=== PATIENT | female | born 1970 | race Caucasian/White ===

== ENCOUNTER 2020-07-08 21:56 | Day surgery (SDCO) | payer OTHER ==
[~2020-07-08] VITALS: Ht 170.2 cm; Wt 129.8 kg
[~2020-07-08 21:56] MED LIST: AZITHROMYCIN250 MG PO; CYMBALTA 30MG C30 MG PO; DICYCLOMINE HCL20 MG PO; FUROSEMIDE 40 MG TAB PO; GLUCOTROL5 MG PO; HCTZ25 MG PO; HYDROCODON-ACE1 EAC4 PO; LASIX20 MG PO; MEDROL 4MG DOSEP4 MG PO; METFORMIN HCL500 MG PO; NEURONTIN300 MG PO; ONDANSETRON ODT4 MG SL; PEPCID AC20 MG PO; PREDNISONE 20MG20 MG PO; PRINIVIL20 MG PO; PROTONIX40 MG PO; ROBAXIN750 MG PO; SINGULAIR10 MG PO; ZOCOR5 MG PO
[2020-07-08 23:41] LABS: BILIRUBIN NEGATIVE (NEGATIVE); BLOOD 2+ Ery/uL (NEGATIVE); CLARITY CLEAR (CLEAR); COLOR YELLOW (YELLOW); GLUCOSE (U) 3+ mg/dL (NORMAL); LEUKOCYTES NEGATIVE Leu/uL (NEGATIVE); NITRITE NEGATIVE (NEGATIVE); PROTEIN NEGATIVE (NEGATIVE); SPECIFIC GRAVITY 1.015 (1.001-1.030); UROBILINOGEN 0.2 mg/dL (0.2-1.0)
[2020-07-09 00:02] LABS: BACTERIA 1+
[2020-07-09 00:18] LABS: BASOPHIL 0.8 % (0-2); HCT 43.5 % (37.0-47.0); HGB 14.5 g/dl (12.5-16.0); LYMPHOCYTE 33.6 % (15-48); MCH 28.6 pg (25.0-31.0); MCHC 33.3 g/dL (32.0-36.0); MCV 85.8 fL (78.0-100.0); MONOCYTE 5.3 % (0-12); MPV 8.9 fL (6.0-9.5); NEUTROPHIL 57.9 % (41-80); NRBC 0; PLT 470 K/uL (150-400); RBC 5.07 M/uL (4.20-5.40); RDW 14.6 % (11.5-14.0); WBC 14.6 K/uL (4.0-10.5)
[2020-07-09 00:35] LABS: ALBUMIN 3.2 g/dL (3.4-5.0); BILIRUBIN - TOTAL 0.1 mg/dL (0.2-1.0); BUN/CREAT RATIO (CALC) 20.2 RATIO; CREATININE 0.99 mg/dL (0.51-0.95); GLOBULIN (CALCULATION) 4.4 g/dL; POTASSIUM 3.8 mmol/L (3.5-5.1); TOTAL PROTEIN 7.6 g/dL (6.4-8.2)
[2020-07-09] MEDS ORDERED: PROTONIX 40MG T40 MG PO (04:07)
[2020-07-09] MEDS ORDERED: SINGULAIR10 MG PO (04:07)
[2020-07-09] MEDS ORDERED: PRINIVIL20 MG PO (04:07)
[2020-07-09] MEDS ORDERED: ZOCOR5 MG PO (04:08)
[2020-07-09] MEDS ORDERED: CYMBALTA 30MG C30 MG PO (04:08)
[2020-07-09] MEDS ORDERED: GABAPENTIN300 MG PO (04:09)
[2020-07-09] MEDS ORDERED: GABAPENTIN600 MG PO (04:10)
[2020-07-09] MEDS ORDERED: GLUCOTROL5 MG PO (04:11)
[2020-07-09] MEDS ORDERED: HCTZ25 MG PO (04:12)
[2020-07-09 11:01] LABS: POTASSIUM 3.6 mmol/L (3.5-5.1)
[2020-07-10] MEDS ORDERED: ZOFRAN4 M1 PO (09:53)
[2020-07-10] MEDS ORDERED: PERCOCET 5-3251 EACH PO (09:53)
== END 2020-07-10 14:45 | disposition home or self-care (01) ==
LOC: FER 21:56 → FMS 07-09 02:52
PROVIDERS: Nurse Practitioner; Student in an Organized Health Care Education/Training Program; ADMIT Allergy & Immunology Allergy
DX: E11.43 Type 2 diabetes mellitus with diabetic autonomic (poly)neuropathy (principal); K31.84 Gastroparesis; D72.829 Elevated white blood cell count, unspecified; R10.9 Unspecified abdominal pain; K21.9 Gastro-esophageal reflux disease without esophagitis; N83.202 Unspecified ovarian cyst, left side; J45.909 Unspecified asthma, uncomplicated; E11.40 Type 2 diabetes mellitus with diabetic neuropathy, unspecified; E03.9 Hypothyroidism, unspecified; I10 Essential (primary) hypertension; F60.3 Borderline personality disorder; F12.10 Cannabis abuse, uncomplicated; F43.10 Post-traumatic stress disorder, unspecified; Z90.49 Acquired absence of other specified parts of digestive tract; Z87.891 Personal history of nicotine dependence; Z82.49 Family history of ischemic heart disease and other diseases of the circulatory system; Z88.5 Allergy status to narcotic agent; Z20.822 Contact with and (suspected) exposure to COVID-19; R11.2 Nausea with vomiting, unspecified
CPT/HCPCS: 36415; 80048; 80053; 81001; 84484; 85025; 87076; 87088; 87186; 93005; G0378; J1170; J1650; J1885; J2270; J2405; J3010; J7030; U0002

== ENCOUNTER 2020-08-14 21:07 | Emergency (ER) | payer OTHER ==
[~2020-08-14 21:07] MED LIST changes: +GABAPENTIN300 MG PO; +GABAPENTIN600 MG PO; +PERCOCET 5-3251 EACH PO; +PROTONIX 40MG T40 MG PO; +ZOFRAN4 M1 PO
[2020-08-14] MEDS ORDERED: NORCO 5-325 TA1 EACH PO (23:59)
[2020-08-14] MEDS ORDERED: IBUPROFEN800 MG PO (23:59)
== END 2020-08-15 00:15 | disposition home or self-care (01) ==
LOC: FER 21:07
DX: S70.11XA Contusion of right thigh, initial encounter (principal); I10 Essential (primary) hypertension; E11.9 Type 2 diabetes mellitus without complications; J45.909 Unspecified asthma, uncomplicated; Z88.5 Allergy status to narcotic agent; W20.8XXA Other cause of strike by thrown, projected or falling object, initial encounter; Y92.009 Unspecified place in unspecified non-institutional (private) residence as the place of occurrence of the external cause
CPT/HCPCS: 73552; J1170; J1885

== ENCOUNTER 2020-08-17 20:05 | Emergency (ER) | payer OTHER ==
[~2020-08-17 20:05] MED LIST changes: +IBUPROFEN800 MG PO; +NORCO 5-325 TA1 EACH PO
[2020-08-17] MEDS ORDERED: PEPCID AC20 MG PO (20:52)
[2020-08-17] MEDS ORDERED: BENADRYL25 MG PO (20:52)
== END 2020-08-17 21:15 | disposition home or self-care (01) ==
LOC: FER 20:05
DX: T63.441A Toxic effect of venom of bees, accidental (unintentional), initial encounter (principal); E11.9 Type 2 diabetes mellitus without complications; I10 Essential (primary) hypertension; E78.5 Hyperlipidemia, unspecified; E03.9 Hypothyroidism, unspecified; F17.200 Nicotine dependence, unspecified, uncomplicated; Z88.5 Allergy status to narcotic agent; Z91.030 Bee allergy status; Z79.899 Other long term (current) drug therapy; Z79.84 Long term (current) use of oral hypoglycemic drugs
CPT/HCPCS: J1200; J7512

== ENCOUNTER 2020-09-10 16:51 | Emergency (ER) | payer OTHER ==
[~2020-09-10 16:51] MED LIST changes: +BENADRYL25 MG PO
[2020-09-10 21:30] LABS: BASOPHIL 0.7 % (0-2); EOSINOPHIL 1.4 % (0-5); HCT 46.4 % (37.0-47.0); HGB 15.1 g/dl (12.5-16.0); LYMPHOCYTE 32.9 % (15-48); MCH 27.8 pg (25.0-31.0); MCHC 32.5 g/dL (32.0-36.0); MCV 85.3 fL (78.0-100.0); MONOCYTE 5.9 % (0-12); MPV 8.8 fL (6.0-9.5); NEUTROPHIL 58.7 % (41-80); NRBC 0; PLT 402 K/uL (150-400); RBC 5.44 M/uL (4.20-5.40); RDW 14.2 % (11.5-14.0); WBC 12.9 K/uL (4.0-10.5)
[2020-09-10 21:35] LABS: BILIRUBIN NEGATIVE (NEGATIVE); BLOOD NEGATIVE Ery/uL (NEGATIVE); CLARITY CLEAR (CLEAR); COLOR YELLOW (YELLOW); GLUCOSE (U) 3+ mg/dL (NORMAL); LEUKOCYTES 1+ Leu/uL (NEGATIVE); NITRITE NEGATIVE (NEGATIVE); PROTEIN NEGATIVE (NEGATIVE)
[2020-09-10 21:39] LABS: AMPHETAMINES NEGATIVE (NEGATIVE); BARBITURATES NEGATIVE (NEGATIVE); ECSTASY (MDMA) NEGATIVE (NEGATIVE); MARIJUANA (THC) POSITIVE (NEGATIVE); METHADONE NEGATIVE (NEGATIVE); OPIATES NEGATIVE (NEGATIVE); OXYCODONE NEGATIVE (NEGATIVE)
[2020-09-10 21:41] LABS: BACTERIA TRACE
[2020-09-10 21:41] LABS: ALBUMIN 3.8 g/dL (3.4-5.0); BILIRUBIN - TOTAL 0.3 mg/dL (0.2-1.0); BUN/CREAT RATIO (CALC) 14.9 RATIO; CREATININE 0.94 mg/dL (0.51-0.95); GLOBULIN (CALCULATION) 3.9 g/dL; POTASSIUM 3.3 mmol/L (3.5-5.1); TOTAL PROTEIN 7.7 g/dL (6.4-8.2)
== END 2020-09-11 00:17 | disposition home or self-care (01) ==
LOC: FER 16:51
PROVIDERS: Nurse Practitioner Family
DX: R07.89 Other chest pain (principal); R06.02 Shortness of breath; E11.9 Type 2 diabetes mellitus without complications; I10 Essential (primary) hypertension; I51.9 Heart disease, unspecified; Z88.5 Allergy status to narcotic agent
CPT/HCPCS: 36415; 71045; 80053; 80305; 81001; 84484; 85025; 87076; 87088; 87186; J1885; J2405; J7030

== ENCOUNTER 2020-11-08 16:37 | Emergency (ER) | payer OTHER ==
[2020-11-08 17:54] LABS: BASOPHIL 0.4 % (0-2); EOSINOPHIL 1.1 % (0-5); HCT 48.4 % (37.0-47.0); LYMPHOCYTE 39.1 % (15-48); MCH 27.3 pg (25.0-31.0); MCHC 33.1 g/dL (32.0-36.0); MCV 82.6 fL (78.0-100.0); MONOCYTE 10.4 % (0-12); MPV 8.8 fL (6.0-9.5); NEUTROPHIL 48.7 % (41-80); NRBC 0; PLT 343 K/uL (150-400); RBC 5.86 M/uL (4.20-5.40); RDW 14.4 % (11.5-14.0); WBC 7.4 K/uL (4.0-10.5)
[2020-11-08 18:14] LABS: BUN/CREAT RATIO (CALC) 12.4 RATIO; CREATININE 1.05 mg/dL (0.51-0.95); POTASSIUM 3.7 mmol/L (3.5-5.1)
== END 2020-11-08 20:20 | disposition home or self-care (01) ==
LOC: FER 16:37
PROVIDERS: Nurse Practitioner Family
DX: U07.1 COVID-19 (principal); I10 Essential (primary) hypertension; E11.40 Type 2 diabetes mellitus with diabetic neuropathy, unspecified; J45.909 Unspecified asthma, uncomplicated; Z23 Encounter for immunization; Z88.5 Allergy status to narcotic agent
CPT/HCPCS: 36415; 71045; 80048; 85025; J1885; J7030; M0245; Q0245

== ENCOUNTER 2020-12-17 14:58 | Emergency (ER) | payer OTHER ==
[2020-12-17] MEDS ORDERED: ONDANSETRON ODT4 MG PO (17:17)
[2020-12-17] MEDS ORDERED: MEDROL 4MG DOSEP4 MG PO (17:17)
[2020-12-17] MEDS ORDERED: ZYRTEC10 M3 PO (17:19)
== END 2020-12-17 17:30 | disposition home or self-care (01) ==
LOC: FER 14:58
DX: T63.441A Toxic effect of venom of bees, accidental (unintentional), initial encounter (principal); F17.210 Nicotine dependence, cigarettes, uncomplicated
CPT/HCPCS: 93005; J1200; J2405; J2930; J7030

== ENCOUNTER 2021-02-25 10:14 | Day surgery (SDCO) | payer OTHER ==
[~2021-02-25] VITALS: Ht 170.2 cm; Wt 123.0 kg
[~2021-02-25 10:14] MED LIST changes: +ONDANSETRON ODT4 MG PO; +ZYRTEC10 M3 PO
[2021-02-25 11:18] LABS: BASOPHIL 0.5 % (0-2); EOSINOPHIL 0.8 % (0-5); HGB 13.6 g/dl (12.5-16.0); LYMPHOCYTE 17.9 % (15-48); MCH 27.3 pg (25.0-31.0); MCHC 32.4 g/dL (32.0-36.0); MCV 84.3 fL (78.0-100.0); MONOCYTE 5.6 % (0-12); MPV 8.9 fL (6.0-9.5); NEUTROPHIL 73.3 % (41-80); NRBC 0; PLT 405 K/uL (150-400); RBC 4.98 M/uL (4.20-5.40); WBC 16.2 K/uL (4.0-10.5)
[2021-02-25 11:20] LABS: INFLUENZA A NAA NEGATIVE (NEGATIVE)
[2021-02-25 11:22] LABS: ALBUMIN 3.3 g/dL (3.4-5.0); BILIRUBIN - TOTAL 0.2 mg/dL (0.2-1.0); BUN/CREAT RATIO (CALC) 18.6 RATIO; CREATININE 0.86 mg/dL (0.51-0.95); GLOBULIN (CALCULATION) 3.3 g/dL; TOTAL PROTEIN 6.6 g/dL (6.4-8.2)
[2021-02-25 11:24] LABS: CORONAVIRUS 2019 SARS-COV-2 POSITIVE (NEGATIVE)
[2021-02-25] MEDS ORDERED: METFORMIN HCL500 MG PO (15:33)
[2021-02-25 15:48] LABS: LACTIC ACID 1.3 mmol/L (0.4-1.9)
[2021-02-25] MEDS ORDERED: JANUVIA50 M1 PO (15:53)
[2021-02-25 15:59] LABS: BILIRUBIN NEGATIVE (NEGATIVE); BLOOD NEGATIVE Ery/uL (NEGATIVE); CLARITY CLEAR (CLEAR); COLOR YELLOW (YELLOW); GLUCOSE (U) NORMAL (NORMAL); LEUKOCYTES NEGATIVE Leu/uL (NEGATIVE); NITRITE NEGATIVE (NEGATIVE); PROTEIN NEGATIVE (NEGATIVE); SPECIFIC GRAVITY 1.015 (1.001-1.030); UROBILINOGEN 0.2 mg/dL (0.2-1.0)
[2021-02-25] MEDS ORDERED: GABAPENTIN800 MG PO (16:04)
[2021-02-25] MEDS ORDERED: PRISTIQ ER100 MG PO (16:05)
[2021-02-25] MEDS ORDERED: GLUCOTROL10 MG PO (16:07)
[2021-02-25] MEDS ORDERED: AMITRIPTYLINE 225 MG PO (16:07)
[2021-02-25] MEDS ORDERED: LASIX40 MG PO (16:09)
[2021-02-25] MEDS ORDERED: REGLAN10 MG PO (16:10)
[2021-02-25] MEDS ORDERED: TRULICITY1.5 MG/0.5 IJ (16:11)
[2021-02-25] MEDS ORDERED: LEVOTHYROXINE75 MC2 PO (16:12)
[2021-02-26 07:26] LABS: BASOPHIL 0.2 % (0-2); EOSINOPHIL 0.1 % (0-5); HCT 41.5 % (37.0-47.0); HGB 13.5 g/dl (12.5-16.0); LYMPHOCYTE 16.2 % (15-48); MCH 27.1 pg (25.0-31.0); MCHC 32.5 g/dL (32.0-36.0); MCV 83.3 fL (78.0-100.0); MONOCYTE 5.4 % (0-12); MPV 9.4 fL (6.0-9.5); NEUTROPHIL 77.3 % (41-80); NRBC 0; PLT 443 K/uL (150-400); RBC 4.98 M/uL (4.20-5.40); RDW 14.6 % (11.5-14.0); WBC 19.5 K/uL (4.0-10.5)
[2021-02-26 08:26] LABS: BUN/CREAT RATIO (CALC) 21.5 RATIO; CREATININE 0.79 mg/dL (0.51-0.95)
[2021-02-26] MEDS ORDERED: MEDROL 4MG DOSEP4 MG PO (11:54)
[2021-02-26] MEDS ORDERED: ROBITUSSIN W/COD5 ML PO ×2 (11:54→16:40)
== END 2021-02-26 15:54 | disposition home or self-care (01) ==
LOC: FER 10:14 → FMS 12:58 → FER 15:31 → FMS 02-26 15:54
PROVIDERS: Emergency Medicine; ADMIT Internal Medicine
DX: U07.1 COVID-19 (principal); J45.909 Unspecified asthma, uncomplicated; E11.43 Type 2 diabetes mellitus with diabetic autonomic (poly)neuropathy; K31.84 Gastroparesis; R79.89 Other specified abnormal findings of blood chemistry; I10 Essential (primary) hypertension; E78.5 Hyperlipidemia, unspecified; E03.9 Hypothyroidism, unspecified; D72.828 Other elevated white blood cell count; F32.A Depression, unspecified; F43.10 Post-traumatic stress disorder, unspecified; Z87.891 Personal history of nicotine dependence; Z90.49 Acquired absence of other specified parts of digestive tract; Z88.5 Allergy status to narcotic agent; Z79.84 Long term (current) use of oral hypoglycemic drugs; Z79.899 Other long term (current) drug therapy; Z98.1 Arthrodesis status; Z82.49 Family history of ischemic heart disease and other diseases of the circulatory system
CPT/HCPCS: 36415; 71045; 71275; 80048; 80053; 81003; 82728; 82962; 83036; 83605; 83880; 84484; 85025; 85379; 87040; 93005; 93971; 94640; 94664; G0378; J1650; J1940; J2930; J7512; U0002

== ENCOUNTER 2021-04-25 17:31 | Emergency (ER) | payer OTHER ==
[~2021-04-25 17:31] MED LIST changes: +AMITRIPTYLINE 225 MG PO; +GABAPENTIN800 MG PO; +GLUCOTROL10 MG PO; +JANUVIA50 M1 PO; +LASIX40 MG PO; +LEVOTHYROXINE75 MC2 PO; +PRISTIQ ER100 MG PO; +REGLAN10 MG PO; +ROBITUSSIN W/COD5 ML PO; +TRULICITY1.5 MG/0.5 IJ
[2021-04-25 18:27] LABS: BASOPHIL 0.3 % (0-2); EOSINOPHIL 0.5 % (0-5); HCT 50.2 % (37.0-47.0); HGB 16.1 g/dl (12.5-16.0); LYMPHOCYTE 7.9 % (15-48); MCH 27.1 pg (25.0-31.0); MCHC 32.1 g/dL (32.0-36.0); MCV 84.4 fL (78.0-100.0); MONOCYTE 7.4 % (0-12); MPV 8.6 fL (6.0-9.5); NEUTROPHIL 83.4 % (41-80); NRBC 0; PLT 544 K/uL (150-400); RBC 5.95 M/uL (4.20-5.40); RDW 16.5 % (11.5-14.0); WBC 18.3 K/uL (4.0-10.5)
[2021-04-25 18:38] LABS: ALBUMIN 3.8 g/dL (3.4-5.0); BILIRUBIN - TOTAL 0.4 mg/dL (0.2-1.0); BUN/CREAT RATIO (CALC) 19.5 RATIO; CREATININE 1.13 mg/dL (0.51-0.95); GLOBULIN (CALCULATION) 3.8 g/dL; POTASSIUM 3.7 mmol/L (3.5-5.1); TOTAL PROTEIN 7.6 g/dL (6.4-8.2)
[2021-04-25 19:02] LABS: BILIRUBIN 2+ mg/dL (NEGATIVE); BLOOD NEGATIVE Ery/uL (NEGATIVE); COLOR YELLOW (YELLOW); GLUCOSE (U) NORMAL (NORMAL); LEUKOCYTES NEGATIVE Leu/uL (NEGATIVE); NITRITE NEGATIVE (NEGATIVE); PROTEIN 1+ mg/dL (NEGATIVE); SPECIFIC GRAVITY >=1.030 (1.001-1.030); UROBILINOGEN 0.2 mg/dL (0.2-1.0)
[2021-04-25 19:04] LABS: CORONAVIRUS 2019 SARS-COV-2 NEGATIVE (NEGATIVE); INFLUENZA A NAA NEGATIVE (NEGATIVE)
[2021-04-25 19:05] LABS: CLARITY HAZY (CLEAR)
[2021-04-25 19:23] LABS: BACTERIA 1+
[2021-04-25 19:25] LABS: TRANSITIONAL EPITHELIAL CELLS RARE; URINARY RBC RARE
[2021-04-25 19:27] LABS: RENAL EPITHELIAL CELLS RARE
[2021-04-25 20:16] LABS: LACTIC ACID 0.9 mmol/L (0.4-1.9)
[2021-04-25] MEDS ORDERED: ONDANSETRON HCL4 MG PO (20:38)
== END 2021-04-25 21:42 | disposition home or self-care (01) ==
LOC: FER 17:31
PROVIDERS: Nurse Practitioner Family
DX: K52.9 Noninfective gastroenteritis and colitis, unspecified (principal); F17.210 Nicotine dependence, cigarettes, uncomplicated; E11.9 Type 2 diabetes mellitus without complications; I10 Essential (primary) hypertension; Z20.822 Contact with and (suspected) exposure to COVID-19
CPT/HCPCS: 36415; 80053; 81001; 83605; 85025; 87088; J2405; J7030; Q9967; U0002

== ENCOUNTER 2021-05-26 19:09 | Day surgery (SDCO) | payer OTHER ==
[~2021-05-26] VITALS: Ht 170.2 cm; Wt 121.3 kg
[~2021-05-26 19:09] MED LIST changes: +ONDANSETRON HCL4 MG PO
[2021-05-26 20:06] LABS: BASOPHIL 0.7 % (0-2); EOSINOPHIL 1.9 % (0-5); HCT 48.6 % (37.0-47.0); HGB 15.8 g/dl (12.5-16.0); LYMPHOCYTE 31.8 % (15-48); MCH 27.1 pg (25.0-31.0); MCHC 32.5 g/dL (32.0-36.0); MCV 83.4 fL (78.0-100.0); MONOCYTE 7.1 % (0-12); MPV 8.6 fL (6.0-9.5); NEUTROPHIL 58.2 % (41-80); NRBC 0; PLT 462 K/uL (150-400); RBC 5.83 M/uL (4.20-5.40); RDW 15.4 % (11.5-14.0); WBC 14.6 K/uL (4.0-10.5)
[2021-05-26 20:33] LABS: LACTIC ACID 3.1 mmol/L (0.4-1.9)
[2021-05-26 20:35] LABS: ALBUMIN 3.5 g/dL (3.4-5.0); BILIRUBIN - TOTAL 0.2 mg/dL (0.2-1.0); BUN/CREAT RATIO (CALC) 11.1 RATIO; CREATININE 0.99 mg/dL (0.51-0.95); POTASSIUM 3.4 mmol/L (3.5-5.1); TOTAL PROTEIN 7.5 g/dL (6.4-8.2)
[2021-05-26 20:41] LABS: CORONAVIRUS 2019 SARS-COV-2 NEGATIVE (NEGATIVE); INFLUENZA A NAA NEGATIVE (NEGATIVE)
[2021-05-26 20:53] LABS: BILIRUBIN 1+ mg/dL (NEGATIVE); BLOOD TRACE-INTACT Ery/uL (NEGATIVE); CLARITY CLEAR (CLEAR); COLOR YELLOW (YELLOW); GLUCOSE (U) NORMAL (NORMAL); LEUKOCYTES NEGATIVE Leu/uL (NEGATIVE); NITRITE NEGATIVE (NEGATIVE); PROTEIN 1+ mg/dL (NEGATIVE); pH 6.5 (5.0-9.0)
[2021-05-26 20:59] LABS: AMORPHOUS URATES CRYSTALS MODERATE; BACTERIA 2+
[2021-05-26] MEDS ORDERED: NOVOLOG VI100 UNIT/1 SC (23:00)
[2021-05-27 05:35] LABS: BASOPHIL 0.2 % (0-2); EOSINOPHIL 0 % (0-5); HCT 43.1 % (37.0-47.0); LYMPHOCYTE 7.8 % (15-48); MCH 27.2 pg (25.0-31.0); MCHC 32.5 g/dL (32.0-36.0); MCV 83.9 fL (78.0-100.0); MONOCYTE 1.4 % (0-12); MPV 8.8 fL (6.0-9.5); NRBC 0; PLT 371 K/uL (150-400); RBC 5.14 M/uL (4.20-5.40); RDW 15.2 % (11.5-14.0); WBC 10.5 K/uL (4.0-10.5)
[2021-05-27 05:40] LABS: NEUTROPHIL 90.2 % (41-80)
[2021-05-27 05:58] LABS: BUN/CREAT RATIO (CALC) 16.7 RATIO; CREATININE 0.84 mg/dL (0.51-0.95); POTASSIUM 4.5 mmol/L (3.5-5.1)
[2021-05-28 05:43] LABS: BASOPHIL 0.3 % (0-2); EOSINOPHIL 0.5 % (0-5); HCT 41.6 % (37.0-47.0); HGB 13.4 g/dl (12.5-16.0); LYMPHOCYTE 26.2 % (15-48); MCH 27.1 pg (25.0-31.0); MCHC 32.2 g/dL (32.0-36.0); MCV 84.2 fL (78.0-100.0); MONOCYTE 5.6 % (0-12); MPV 8.9 fL (6.0-9.5); NEUTROPHIL 66.9 % (41-80); NRBC 0; PLT 360 K/uL (150-400); RBC 4.94 M/uL (4.20-5.40); RDW 15.4 % (11.5-14.0); WBC 13.3 K/uL (4.0-10.5)
[2021-05-28 06:01] LABS: CREATININE 0.9 mg/dL (0.51-0.95); MAGNESIUM 1.9 mg/dL (1.8-2.4)
[2021-05-28] MEDS ORDERED: FENOFIBRATE145 MG PO (06:39)
[2021-05-28] MEDS ORDERED: MOBIC7.5 MG PO (06:40)
[2021-05-28] MEDS ORDERED: PRISTIQ ER100 MG PO (06:41)
[2021-05-28] MEDS ORDERED: LAMICTAL100 MG PO (06:42)
[2021-05-28] MEDS ORDERED: HCTZ25 MG PO (06:44)
[2021-05-28] MEDS ORDERED: ATARAX25 MG PO (06:45)
[2021-05-28] MEDS ORDERED: CRESTOR10 M1 PO (06:46)
[2021-05-28] MEDS ORDERED: CARAFATE1 GM PO (06:47)
[2021-05-28] MEDS ORDERED: PREDNISONE 20MG20 MG PO (10:27)
[2021-05-28] MEDS ORDERED: HYDROCODONE-CH473 ML PO (10:27)
[2021-05-28] MEDS ORDERED: AZITHROMYCIN250 MG PO (13:04)
== END 2021-05-28 14:34 | disposition home or self-care (01) ==
LOC: FER 19:09 → FMS 21:14
PROVIDERS: Internal Medicine; Nurse Practitioner; ADMIT Internal Medicine
DX: J44.1 Chronic obstructive pulmonary disease with (acute) exacerbation (principal); J45.909 Unspecified asthma, uncomplicated; I10 Essential (primary) hypertension; E11.43 Type 2 diabetes mellitus with diabetic autonomic (poly)neuropathy; K31.84 Gastroparesis; F17.200 Nicotine dependence, unspecified, uncomplicated; E03.9 Hypothyroidism, unspecified; E87.2 Acidosis; Z90.49 Acquired absence of other specified parts of digestive tract; Z20.822 Contact with and (suspected) exposure to COVID-19
CPT/HCPCS: 36415; 71045; 80048; 80053; 81001; 83605; 83735; 83880; 84145; 84484; 85025; 85379; 87040; 93005; 94640; 94762; G0378; J0456; J0696; J1100; J1650; J1815; J2543; J7030; J7050; J7512; U0002

== ENCOUNTER 2021-06-06 01:41 | Inpatient (IN) | payer OTHER ==
[~2021-06-06] VITALS: Ht 170.2 cm; Wt 128.4 kg
[~2021-06-06 01:41] MED LIST changes: +ATARAX25 MG PO; +CARAFATE1 GM PO; +CRESTOR10 M1 PO; +FENOFIBRATE145 MG PO; +HYDROCODONE-CH473 ML PO; +LAMICTAL100 MG PO; +MOBIC7.5 MG PO; +NOVOLOG VI100 UNIT/1 SC
[2021-06-06 02:46] LABS: INR 0.99 (0.9-1.2); PROTHROMBIN TIME 12.5 SECONDS (11.8-13.4); PTT 35.1 SECONDS (24.4-34.7)
[2021-06-06 02:47] LABS: BASOPHIL 0.6 % (0-2); EOSINOPHIL 0.9 % (0-5); HCT 51.2 % (37.0-47.0); HGB 16.9 g/dl (12.5-16.0); LYMPHOCYTE 23.9 % (15-48); MCH 27.1 pg (25.0-31.0); MCV 82.1 fL (78.0-100.0); MONOCYTE 6.7 % (0-12); MPV 8.9 fL (6.0-9.5); NRBC 0; PLT 542 K/uL (150-400); RBC 6.24 M/uL (4.20-5.40); RDW 15.1 % (11.5-14.0)
[2021-06-06 02:48] LABS: D-DIMER < 0.27 ug/mLFEU (0.00-0.41)
[2021-06-06 02:50] LABS: WBC 23.4 K/uL (4.0-10.5)
[2021-06-06 02:52] LABS: LACTIC ACID 1.3 mmol/L (0.4-1.9)
[2021-06-06 02:53] LABS: ALBUMIN 3.7 g/dL (3.4-5.0); BILIRUBIN - TOTAL 0.4 mg/dL (0.2-1.0); BUN/CREAT RATIO (CALC) 14.6 RATIO; CREATININE 2.26 mg/dL (0.51-0.95); GLOBULIN (CALCULATION) 3.7 g/dL; POTASSIUM 3.9 mmol/L (3.5-5.1); TOTAL PROTEIN 7.4 g/dL (6.4-8.2)
[2021-06-06 03:55] LABS: ACETAMINOPHEN (TYLENOL) < 2.0 ug/mL (10.0-30.0)
[2021-06-06 04:04] LABS: CORONAVIRUS 2019 SARS-COV-2 NEGATIVE (NEGATIVE); INFLUENZA A NAA NEGATIVE (NEGATIVE)
[2021-06-06 05:28] LABS: BILIRUBIN NEGATIVE (NEGATIVE); BLOOD NEGATIVE Ery/uL (NEGATIVE); CLARITY CLEAR (CLEAR); COLOR YELLOW (YELLOW); GLUCOSE (U) NORMAL (NORMAL); LEUKOCYTES NEGATIVE Leu/uL (NEGATIVE); NITRITE NEGATIVE (NEGATIVE); PROTEIN NEGATIVE (NEGATIVE); UROBILINOGEN 0.2 mg/dL (0.2-1.0)
[2021-06-06 05:38] LABS: AMPHETAMINES NEGATIVE (NEGATIVE); BARBITURATES NEGATIVE (NEGATIVE); ECSTASY (MDMA) NEGATIVE (NEGATIVE); MARIJUANA (THC) POSITIVE (NEGATIVE); METHADONE NEGATIVE (NEGATIVE); OPIATES NEGATIVE (NEGATIVE); OXYCODONE NEGATIVE (NEGATIVE)
[2021-06-06 17:16] LABS: BUN/CREAT RATIO (CALC) 19.6 RATIO; CREATININE 1.12 mg/dL (0.51-0.95); POTASSIUM 4.3 mmol/L (3.5-5.1)
[2021-06-07 04:04] LABS: BASOPHIL 0.6 % (0-2); EOSINOPHIL 2.9 % (0-5); HGB 12.8 g/dl (12.5-16.0); LYMPHOCYTE 30.8 % (15-48); MCH 26.6 pg (25.0-31.0); MCHC 31.2 g/dL (32.0-36.0); MCV 85.1 fL (78.0-100.0); MONOCYTE 7.3 % (0-12); MPV 9.2 fL (6.0-9.5); NEUTROPHIL 58.1 % (41-80); NRBC 0; PLT 302 K/uL (150-400); RBC 4.82 M/uL (4.20-5.40); RDW 15.1 % (11.5-14.0); WBC 9.5 K/uL (4.0-10.5)
[2021-06-07 04:27] LABS: BUN/CREAT RATIO (CALC) 17.3 RATIO; C-REACTIVE PROTEIN 2.3 mg/dL (<=0.90); CREATININE 0.98 mg/dL (0.51-0.95); POTASSIUM 4.6 mmol/L (3.5-5.1)
== END 2021-06-07 10:47 | disposition home or self-care (01) | DRG 682 ==
LOC: FER 01:41 → FTCU 05:28
PROVIDERS: Emergency Medicine; Nurse Practitioner Acute Care; ADMIT Internal Medicine
DX: N17.9 Acute kidney failure, unspecified (principal); R65.11 Systemic inflammatory response syndrome (SIRS) of non-infectious origin with acute organ dysfunction; Z68.41 Body mass index [BMI] 40.0-44.9, adult; E11.319 Type 2 diabetes mellitus with unspecified diabetic retinopathy without macular edema; Z20.822 Contact with and (suspected) exposure to COVID-19; I10 Essential (primary) hypertension; J45.909 Unspecified asthma, uncomplicated; R07.89 Other chest pain; E66.9 Obesity, unspecified; F43.10 Post-traumatic stress disorder, unspecified; E11.43 Type 2 diabetes mellitus with diabetic autonomic (poly)neuropathy; K31.84 Gastroparesis; M50.20 Other cervical disc displacement, unspecified cervical region; E03.9 Hypothyroidism, unspecified; E78.5 Hyperlipidemia, unspecified; F41.9 Anxiety disorder, unspecified; F32.A Depression, unspecified; Z86.16 Personal history of COVID-19; Z90.49 Acquired absence of other specified parts of digestive tract; Z98.890 Other specified postprocedural states; Z87.891 Personal history of nicotine dependence
CPT/HCPCS: 36415; 70450; 70551; 71250; 80048; 80053; 80305; 81003; 82962; 83036; 83605; 83880; 84145; 84443; 84484; 85025; 85379; 85610; 85730; 86140; 87040; 93005; 94010; 94640; 97161; 97165; G0480; J1650; J1815; J2543; J7030; J7120; U0002

== ENCOUNTER 2021-10-16 10:18 | Emergency (ER) | payer OTHER ==
[2021-10-16 11:00] LABS: BASOPHIL 0.7 % (0-2); HGB 15.5 g/dl (12.5-16.0); LYMPHOCYTE 19.5 % (15-48); MCH 27.9 pg (25.0-31.0); MCV 84.5 fL (78.0-100.0); MONOCYTE 7.1 % (0-12); NEUTROPHIL 70.3 % (41-80); NRBC 0; PLT 337 K/uL (150-400); RBC 5.56 M/uL (4.20-5.40); RDW 13.8 % (11.5-14.0); WBC 13.6 K/uL (4.0-10.5)
[2021-10-16 11:46] LABS: BUN/CREAT RATIO (CALC) 23.4 RATIO; CREATININE 0.77 mg/dL (0.51-0.95); POTASSIUM 4.1 mmol/L (3.5-5.1)
[2021-10-16] MEDS ORDERED: NORCO 5-325 TA1 EACH PO (19:13)
[2021-10-16] MEDS ORDERED: ATARAX25 MG PO (19:13)
== END 2021-10-16 16:37 | disposition home or self-care (01) ==
LOC: FER 10:18
PROVIDERS: Emergency Medicine
DX: T78.2XXA Anaphylactic shock, unspecified, initial encounter (principal); I10 Essential (primary) hypertension; E11.40 Type 2 diabetes mellitus with diabetic neuropathy, unspecified; J44.9 Chronic obstructive pulmonary disease, unspecified; Z91.030 Bee allergy status; Z79.4 Long term (current) use of insulin; Z79.899 Other long term (current) drug therapy
CPT/HCPCS: 36415; 80048; 85025; 94640; 96372; J0171; J1200; J2060; J2270; J2405; J2930; J7030

== ENCOUNTER 2021-10-18 13:09 | Emergency (ER) | payer OTHER ==
[2021-10-18 15:31] LABS: BASOPHIL 0.4 % (0-2); EOSINOPHIL 0.2 % (0-5); HCT 43.4 % (37.0-47.0); HGB 14.1 g/dl (12.5-16.0); LYMPHOCYTE 11.3 % (15-48); MCH 27.9 pg (25.0-31.0); MCHC 32.5 g/dL (32.0-36.0); MCV 85.8 fL (78.0-100.0); MONOCYTE 4.7 % (0-12); NEUTROPHIL 82.8 % (41-80); NRBC 0; PLT 325 K/uL (150-400); RBC 5.06 M/uL (4.20-5.40); WBC 12.6 K/uL (4.0-10.5)
[2021-10-18 15:58] LABS: ALBUMIN 3.3 g/dL (3.4-5.0); BILIRUBIN - TOTAL 0.3 mg/dL (0.2-1.0); BUN/CREAT RATIO (CALC) 22.1 RATIO; CREATININE 0.77 mg/dL (0.51-0.95); GLOBULIN (CALCULATION) 3.1 g/dL; POTASSIUM 4.2 mmol/L (3.5-5.1); TOTAL PROTEIN 6.4 g/dL (6.4-8.2)
[2021-10-18 16:10] LABS: CORONAVIRUS 2019 SARS-COV-2 NEGATIVE (NEGATIVE); INFLUENZA A NAA NEGATIVE (NEGATIVE)
[2021-10-18 16:19] LABS: INR 0.92 (0.9-1.2); PROTHROMBIN TIME 12.1 SECONDS (11.9-13.9); PTT 28.5 SECONDS (24.9-34.6)
[2021-10-18] MEDS ORDERED: MEDROL 4MG DOSEP4 MG PO (16:58)
== END 2021-10-18 18:14 | disposition home or self-care (01) ==
LOC: FER 13:09
PROVIDERS: Internal Medicine
DX: T78.40XA Allergy, unspecified, initial encounter (principal); G43.909 Migraine, unspecified, not intractable, without status migrainosus; R06.02 Shortness of breath; R06.2 Wheezing; J44.9 Chronic obstructive pulmonary disease, unspecified; I10 Essential (primary) hypertension; E11.9 Type 2 diabetes mellitus without complications; Z79.4 Long term (current) use of insulin; Z20.822 Contact with and (suspected) exposure to COVID-19
CPT/HCPCS: 36415; 71045; 80053; 83880; 84484; 85025; 85379; 85610; 85730; 93005; 94640; 94664; J1100; J1885; U0002

== ENCOUNTER 2021-10-27 13:33 | Emergency (ER) | payer OTHER | END 2021-10-27 16:50 | disposition home or self-care (01) | LOC: FER 13:33 | DX: G43.909 Migraine, unspecified, not intractable, without status migrainosus (principal); I10 Essential (primary) hypertension; E11.9 Type 2 diabetes mellitus without complications; Z79.4 Long term (current) use of insulin; Z79.899 Other long term (current) drug therapy | CPT/HCPCS: J1200; J1885; J2765 ==